=== PATIENT | male | born 2000 | race Hispanic/Latino ===

== ENCOUNTER 2020-05-14 22:02 | Emergency (ER) | payer MEDICAID, OTHER, SELFPAY ==
[2020-05-14] MEDS ORDERED: ACETAMINOPHEN EXTRA STRENGTH 500 MG TABLET ONE (22:58)
[2020-05-14 23:52] LABS: RAPID GROUP A STREP NEGATIVE (NEGATIVE)
== END 2020-05-15 00:38 | disposition home or self-care (01) ==
LOC: EDH 22:02
DX: U07.1 COVID-19 (principal); B34.9 Viral infection, unspecified
CPT/HCPCS: 36415; 71045; 87486; 87581; 87633; 87635; 87798; 87804; 87880